=== PATIENT | male | born 1975 | race African-American/Black ===

== ENCOUNTER → 2023-04-14 | Outpatient (CLI) | payer OTHER ==
[~2023-04-14] MED LIST: AMLO2.5T96 PO; ATOR40TA28 PO; NAPR-1197 PO; PANT-31 PO
== END | disposition home or self-care (01) ==
LOC: RADPV 09:25
PROVIDERS: ATTEND Chiropractor
DX: I51.7 Cardiomegaly (principal); I20.9 Angina pectoris, unspecified
CPT/HCPCS: 93306